=== PATIENT | female | born 1975 | race Caucasian/White ===

== ENCOUNTER 2022-10-02 21:40 | Inpatient (IN) | payer OTHER ==
[~2022-10-02] VITALS: Ht 175.3 cm; Wt 98.9 kg
[2022-10-02 22:32] LABS: BASOPHILS # (AUTO) 0.1 (0.0-0.1); BASOPHILS % 0.8 % (0.0-1.0); EOSINOPHILS # (AUTO) 0.2 (0.0-0.4); EOSINOPHILS % 2.5 % (0.0-6.0); LYMPHOCYTES # (AUTO) 1.9 (1.0-3.2); LYMPHOCYTES % 22.2 % (18.0-39.1); MEAN CORPUSCULAR HEMOGLOBIN 14.3 pg (28-32); MEAN CORPUSCULAR HGB CONC 25.4 g/dL (31-35); MEAN CORPUSCULAR VOLUME 56.3 fL (81-99); MONOCYTES # (AUTO) 0.6 (0.2-0.8); MONOCYTES % 6.6 % (4.4-11.3); NEUTROPHILS # (AUTO) 5.7 (2.1-6.9); NEUTROPHILS % 67.7 % (38.7-80.0); PLATELET COUNT 530 x10e3/uL (140-360); RED BLOOD COUNT 3.78 x10e6/uL (3.6-5.1)
[2022-10-02 22:33] LABS: HEMATOCRIT 21.3 % (34.2-44.1); HEMOGLOBIN 5.4 g/dL (12.0-16.0)
[2022-10-02] MEDS ORDERED: SODIUM CHLORIDE 0.9% 1000ML 1,000 ML IV ONE (22:45)
[2022-10-02] MEDS ORDERED: TRANEXAMIC ACID 1,000 MG/10 ML ML IV STA (22:47)
[2022-10-02 22:51] LABS: ALBUMIN 3.7 g/dL (3.5-5.0); ALBUMIN/GLOBULIN RATIO 1.1 (0.8-2.0); ANION GAP 12.4 mmol/L (8-16); CALCIUM 8.8 mg/dL (8.4-10.2); CREATININE, SERUM 0.73 mg/dL (0.57-1.11); POTASSIUM 3.4 mmol/L (3.5-5.1)
[2022-10-02] MEDS ORDERED: SODIUM CHLORIDE 0.9% IV ONE (23:00)
[2022-10-02] MEDS ORDERED: TRANEXAMIC ACID IV ONE (23:00)
[2022-10-02] MEDS ORDERED: SODIUM CHLORIDE 0.9% 100 ML in TRANEXAMIC ACID 10 ML IV ONE (23:00)
[2022-10-02] MEDS ORDERED: SODIUM CHLORIDE 0.9% 250ML 250 ML IV ONE (23:15)
[2022-10-03] VITALS (9 sets, daily range): BP systolic 96–168; BP diastolic 55–86
[2022-10-03] MEDS ORDERED: ONDANSETRON HCL INJ 2MG/ML 2ML 2 MG/ML VIAL IV PRN
[2022-10-03] MEDS ORDERED: ONDANSETRON HCL INJ 2MG/ML 2ML 2 MG/ML VIAL IV STA (00:36)
[2022-10-03] MEDS ORDERED: Morphine 4mg INJECTION 4 MG/ML INJ IV ONE (00:45)
[2022-10-03] MEDS ORDERED: Morphine 4mg INJECTION 4 MG/ML INJ ONE (00:53)
[2022-10-03] MEDS ORDERED: SODIUM CHLORIDE 0.9% 250ML 250 ML ONE (05:35)
[2022-10-03] MEDS ORDERED: Morphine 4mg INJECTION 4 MG/ML INJ IV PRN (08:15)
[2022-10-03] MEDS: SODIUM CHLORIDE 0.9% 1000ML 1,000 ML IV SCH ×4 (08:44→17:54)
[2022-10-03 09:27] LABS: BASOPHILS # (AUTO) 0.1 (0.0-0.1); BASOPHILS % 0.7 % (0.0-1.0); EOSINOPHILS # (AUTO) 0.2 (0.0-0.4); EOSINOPHILS % 3.2 % (0.0-6.0); HEMATOCRIT 24.6 % (34.2-44.1); HEMOGLOBIN 6.3 g/dL (12.0-16.0); LYMPHOCYTES % 28.3 % (18.0-39.1); MEAN CORPUSCULAR HEMOGLOBIN 16.1 pg (28-32); MEAN CORPUSCULAR HGB CONC 25.6 g/dL (31-35); MEAN CORPUSCULAR VOLUME 62.8 fL (81-99); MONOCYTES # (AUTO) 0.7 (0.2-0.8); MONOCYTES % 9.4 % (4.4-11.3); NEUTROPHILS % 58.3 % (38.7-80.0); PLATELET COUNT 450 x10e3/uL (140-360); RED BLOOD COUNT 3.92 x10e6/uL (3.6-5.1); RED CELL DISTRIBUTION WIDTH 27.4 % (11.7-14.4)
[2022-10-03] MEDS ORDERED: SODIUM CHLORIDE 0.9% 250ML 250 ML IV ONE ×2 (09:45→20:15)
[2022-10-03 09:52] LABS: ALBUMIN 3.1 g/dL (3.5-5.0); ANION GAP 10.5 mmol/L (8-16); CALCIUM 8.1 mg/dL (8.4-10.2); CREATININE, SERUM 0.61 mg/dL (0.57-1.11); POTASSIUM 3.5 mmol/L (3.5-5.1)
[2022-10-03 10:51] LABS: ANISOCYTOSIS MODERATE; HYPOCHROMASIA MODERATE; MICROCYTOSIS MODERATE; OVALOCYTES FEW; PLATELET ESTIMATE ADEQUATE; PLATELET MORPHOLOGY COMMENT FEW LARGE; RBC MORPHOLOGY COMMENT ABNORMAL
[2022-10-03 11:01] LABS: % IRON SATURATION 3 % (15-50); IRON 14 ug/dL (50-170); TOTAL IRON BINDING CAPACITY 459 ug/dL (261-478); TRANSFERRIN 328 mg/dL (180-382)
[2022-10-03] MEDS: Morphine 4mg INJECTION 4 MG/ML INJ IV PRN ×4 (11:01→21:56)
[2022-10-03 11:24] LABS: FERRITIN < 1.00 ng/mL (4.63-204.00)
[2022-10-03] MEDS ORDERED: TRANEXAMIC ACID 1,000 MG in SODIUM CHLORIDE 0.9% 100 ML IV ONE ×2 (16:00→17:00)
[2022-10-03] MEDS ORDERED: TRANEXAMIC ACID 1,000 MG/10 ML ML IV ONE (17:00)
[2022-10-03] MEDS: DOCUSATE SODIUM 100 MG CAP PO SCH (17:18)
[2022-10-03] MEDS: SENNOSIDES 8.6 MG TAB PO SCH (17:18)
[2022-10-03 17:27] LABS: BASOPHILS # (AUTO) 0.1 (0.0-0.1); EOSINOPHILS # (AUTO) 0.2 (0.0-0.4); EOSINOPHILS % 4.5 % (0.0-6.0); HEMATOCRIT 26.8 % (34.2-44.1); HEMOGLOBIN 7.1 g/dL (12.0-16.0); LYMPHOCYTES # (AUTO) 1.8 (1.0-3.2); MEAN CORPUSCULAR HEMOGLOBIN 17.4 pg (28-32); MEAN CORPUSCULAR HGB CONC 26.5 g/dL (31-35); MEAN CORPUSCULAR VOLUME 65.8 fL (81-99); MONOCYTES # (AUTO) 0.5 (0.2-0.8); MONOCYTES % 9.3 % (4.4-11.3); NEUTROPHILS # (AUTO) 2.6 (2.1-6.9); PLATELET COUNT 421 x10e3/uL (140-360); RED BLOOD COUNT 4.07 x10e6/uL (3.6-5.1); RED CELL DISTRIBUTION WIDTH 29.9 % (11.7-14.4)
[2022-10-03] MEDS ORDERED: BISACODYL 10 MG SUPP PR ONE (23:00)
[2022-10-03] MEDS ORDERED: POLYETHYLENE GLYCOL 3350 17 GM PACK PO ONE (23:00)
[2022-10-04] MEDS: Morphine 4mg INJECTION 4 MG/ML INJ IV PRN ×3 (00:10→09:46)
[2022-10-04] MEDS: SODIUM CHLORIDE 0.9% 1000ML 1,000 ML IV SCH ×3 (08:00→15:53)
[2022-10-04 08:17] LABS: BASOPHILS # (AUTO) 0.1 (0.0-0.1); EOSINOPHILS # (AUTO) 0.3 (0.0-0.4); EOSINOPHILS % 4.3 % (0.0-6.0); HEMATOCRIT 31.1 % (34.2-44.1); HEMOGLOBIN 8.7 g/dL (12.0-16.0); LYMPHOCYTES # (AUTO) 1.6 (1.0-3.2); LYMPHOCYTES % 27.1 % (18.0-39.1); MEAN CORPUSCULAR HEMOGLOBIN 19.2 pg (28-32); MEAN CORPUSCULAR VOLUME 68.8 fL (81-99); MONOCYTES # (AUTO) 0.5 (0.2-0.8); NEUTROPHILS # (AUTO) 3.6 (2.1-6.9); NEUTROPHILS % 59.4 % (38.7-80.0); PLATELET COUNT 388 x10e3/uL (140-360); RED BLOOD COUNT 4.52 x10e6/uL (3.6-5.1); RED CELL DISTRIBUTION WIDTH 31.7 % (11.7-14.4)
[2022-10-04 08:35] VITALS: BP 128/77
[2022-10-04 08:39] VITALS: BP 128/77
[2022-10-04 08:56] LABS: ALBUMIN 3.2 g/dL (3.5-5.0); ANION GAP 10.1 mmol/L (8-16); CALCIUM 8.5 mg/dL (8.4-10.2); CREATININE, SERUM 0.64 mg/dL (0.57-1.11); MAGNESIUM 2.1 MG/DL (1.3-2.1); POTASSIUM 4.1 mmol/L (3.5-5.1)
[2022-10-04] MEDS: DOCUSATE SODIUM 100 MG CAP PO SCH (09:44)
[2022-10-04] MEDS: SENNOSIDES 8.6 MG TAB PO SCH (09:44)
[2022-10-04 10:47] LABS: ANISOCYTOSIS MODERATE; EOSINOPHILS % (MANUAL) 3 % (0-7); LYMPHOCYTES % (MANUAL) 33 % (19-48); MONOCYTES % (MANUAL) 6 % (3.4-9.0); NEUTROPHILS % (MANUAL) 58 % (40-74); PLATELET ESTIMATE ADEQUATE; PLATELET MORPHOLOGY COMMENT NORMAL; RBC MORPHOLOGY COMMENT ABNORMAL
[2022-10-04 10:48] LABS: ELLIPTOCYTE, RBC SLIGHT; HYPOCHROMASIA SLIGHT; OVALOCYTES FEW; POIKILOCYTOSIS MODERATE; SPHEROCYTES FEW
[2022-10-04] MEDS ORDERED: LYSTEDA650 MG PO (12:06)
[2022-10-04] MEDS ORDERED: HYDROCODON-ACE1 EA11 PO (12:06)
[2022-10-04] MEDS ORDERED: FERROUS SULFAT325 MG PO (12:06)
[2022-10-04 12:25] LABS: HEMATOCRIT 30.9 % (34.2-44.1); HEMOGLOBIN 8.7 g/dL (12.0-16.0)
[2022-10-04 12:38] VITALS: BP 110/73
[2022-10-04 16:12] VITALS: BP 129/78
== END 2022-10-04 17:59 | disposition home or self-care (01) | DRG 761 ==
LOC: ER 21:50 → ERHOLD 23:47 → MED/SURG3 10-03 02:28
PROVIDERS: ADMIT Internal Medicine; ATTEND Internal Medicine
PROC: 30233L1 Transfusion of Nonautologous Fresh Plasma into Peripheral Vein, Percutaneous Approach (ICD-10-PCS; principal; 2022-10-03)
PROC: 30233N1 Transfusion of Nonautologous Red Blood Cells into Peripheral Vein, Percutaneous Approach (ICD-10-PCS; 2022-10-03)
PROC: 30233K1 Transfusion of Nonautologous Frozen Plasma into Peripheral Vein, Percutaneous Approach (ICD-10-PCS; 2022-10-03)
DX: N93.8 Other specified abnormal uterine and vaginal bleeding (principal); D50.9 Iron deficiency anemia, unspecified; F41.9 Anxiety disorder, unspecified; F32.A Depression, unspecified; E66.9 Obesity, unspecified; D25.9 Leiomyoma of uterus, unspecified; Z68.32 Body mass index [BMI] 32.0-32.9, adult; N92.0 Excessive and frequent menstruation with regular cycle; I95.9 Hypotension, unspecified; R00.0 Tachycardia, unspecified; Z20.822 Contact with and (suspected) exposure to COVID-19
CPT/HCPCS: 36415; 76830; 76856; 80053; 82607; 82728; 82746; 83540; 83735; 84466; 84702; 85014; 85018; 85025; 86850; 86900; 86920; 93005; 99252; 99284; J2270; J2405; J7030; J7050; P9016; P9017